=== PATIENT | male | born 1975 | race Caucasian/White ===

== ENCOUNTER → 2016-09-20 | Outpatient (CLI) | payer SELFPAY ==
[~2016-09-20] MED LIST: ADVIL200 MG PO; ALDACTONE50 MG PO; ALEVE220 M1 PO; BUMEX1 MG PO; COUMADIN ** IA5 MG PO; GLUCOPHAGE500 MG PO; IPRAT-ALBUT 0.5-3 ML INH; K-TAB (4040 MEQ/4 T PO; LASIX80 MG PO; LEVOTHROID (SY50 MCG PO; MAG-OX-400(241400 MG PO; MOBIC15 MG PO; PROTONIX40 MG PO; ZESTRIL2.5 MG PO
[2016-09-20 18:42] LABS: ANION GAP 13.2 (10.0-19.0); BLOOD UREA NITROGEN 9 mg/dL (6-24); CALCIUM 8.8 mg/dL (8.5-10.5); CHLORIDE 102 mMol/L (96-110); CO2 31 mMol/L (22-32); ESTIMATED GFR (MDRD EQUATION) > 60; POTASSIUM 3.2 mMol/L (3.7-5.1); SODIUM 143 mMol/L (135-145)
== END | disposition disaster alternative care site (69) ==
LOC: LNHI 18:05
PROVIDERS: Internal Medicine Cardiovascular Disease
DX: I42.8 Other cardiomyopathies (principal)

== ENCOUNTER → 2016-12-06 | Outpatient (CLI) | payer SELFPAY ==
[2016-12-06 17:41] LABS: BLOOD UREA NITROGEN 14 mg/dL (6-24); CALCIUM 8.9 mg/dL (8.5-10.5); CHLORIDE 102 mMol/L (96-110); CO2 31 mMol/L (22-32); CREATININE 0.9 mg/dL (0.6-1.3); ESTIMATED GFR (MDRD EQUATION) > 60; SODIUM 137 mMol/L (135-145)
== END ==
LOC: LNHI 17:26
PROVIDERS: Internal Medicine Cardiovascular Disease
DX: I42.0 Dilated cardiomyopathy (principal); I26.99 Other pulmonary embolism without acute cor pulmonale; E66.01 Morbid (severe) obesity due to excess calories; I42.8 Other cardiomyopathies

== ENCOUNTER → 2016-12-10 | Outpatient (CLI) | payer SELFPAY ==
--- NOTE | ~2016-12-10 | ESTC ---
Cardiac Perfusion Imaging Demographics Patient Name ABNER Cortez Gender Male Patient Number [id number] Race Visit Number [id number] Ethnicity [employer] ID Room Number Accession Number [id number] Height 74 inches Date of 1975 Weight 480 pounds Ericka CANELA Interpreting Main [place] Date of study 12/10/2016 Physician Supervising /MARTHA INGRAM Technologist Frank Watts Ordering Physician Rosy Barnett MD component technician Stress ECG Reading Jass Peterson APRN Nurse Carline Bragg Physician NABEEL Giron The procedure was explained in detail to the patient. Risks, complications and alternative treatments were reviewed. Written consent was obtained. Medications Reviewed with Patient prior to Procedure. Procedure Admit Source:Other. Procedure Type: Nuclear Stress Test:Cardiolite Stress Test Procedure Start time: 12/10/2016 08:15 End time: 12/10/2016 08:47 Indications: Cardiomyopathy. Risk Factors The patient risk factors include:obesity, Current/Recent(w/in 1 year) tobacco use, diabetes mellitus, chronic lung disease and prior heart failure . Conclusions Impression ECG portion of the lexiscan stress test is clinically negative for ischemia by diagnostic criteria. Myocardial perfusion imaging is mildly abnormal. The images reveal a very small sized, mildly reversible defect in the distal inferolateral wall consistent with ischemia . Overall left ventricular systolic function was low normal. Calculated LVEF is 52% and TID ratio is 1.06. Stress Protocols Resting ECG Sinus rhythm Pre-stress physical exam: Patient assessed by Kiersten MARTINEZ prior to testing. Chest - CTA Cardio - RRR, S1, S2 Predicted HR: 177 bpm HR response: Appropriate BP response: Appropriate Reason for termination:Infusion complete ECG Findings No ECG changes suggestive of ischemia. < 1mm St depression in leads V2-5 after lexiscan infusion. Arrhythmias No rhythm abnormality. Symptoms Shortness of breath. Chest Tightness Complications Procedure complication: None. Stress Interpretation Appropriate hemodynamic response to Lexiscan. No significant ST-T wave changes with Lexiscan. ECG portion is negative for ischemia by diagnostic criteria. Will correlate with nuclear images. Imaging Results High risk findings Summed scores - Summed stress score: 9 - Summed rest score: 7 - Summed difference score: 2 Stress ejection Ejection fraction:52 % EDV :208 ml ESV :99 ml Stroke volume :109 ml LV mass :204 gr Imaging Protocols Rest Stress Isotope:Tc99m Sestamibi IV Isotope: Tc99m Sestamibi IV Isotope dose:16.6 mCi Isotope dose:49.5 mCi Date:12/10/2016 07:00 Date:12/10/2016 08:40 Technique: SPECT Technique: Gated Supine SPECT Supine Scan Time:45-60 minutes post Scan Time:45-60 minutes post injection injection Procedure Medications - Regadenoson (Lexiscan) 0.4 mg IV over 10-15 sec. I.V. . Medical History Admission Data Admission date: 12/10/2016 Admission Time: 06:15 Hospital Status: Outpatient. Signatures dtt: FROILAN MENDEZ dtd: 12/10/16 0815 Physician Self Edit
== END | disposition disaster alternative care site (69) ==
LOC: GRAD 06:15
DX: I42.9 Cardiomyopathy, unspecified (principal); E66.9 Obesity, unspecified; E11.9 Type 2 diabetes mellitus without complications; I50.9 Heart failure, unspecified; J98.4 Other disorders of lung; Z72.0 Tobacco use
CPT/HCPCS: A9500; J0280; J2785